=== PATIENT | male | born 1990 | race Caucasian/White ===

== ENCOUNTER 2020-03-12 11:54 | Emergency (ER) | payer OTHER ==
[~2020-03-12] VITALS: Ht 177.8 cm; Wt 65.8 kg
[2020-03-12 12:00] VITALS: BP 135/87
--- NOTE | 2020-03-12 12:05 | NUR ---
PT C/O LOWER BACK PAIN RADITING TO LEFT LOWER LEG WITH TINGLING AND NUMBNESS SENSATIONS S/P MACHENICAL FALL AROUND 7PM LAST NIGHT. DENIES URINARY/FECAL INCONTINENCE. DENIES FEVER, COUGH, BODY ACHES, SOB, CHEST PAIN, N/V/D, OR SICK CONTACT. PMH: NONE
[2020-03-12] MEDS ORDERED: KETOROLAC 60 MG/2 ML VIAL IM ONE (12:40)
--- NOTE | 2020-03-12 13:00 | NUR ---
Pt has been taking to XRAY VIA .
[2020-03-12 14:19] VITALS: BP 135/87
--- NOTE | 2020-03-12 14:20 | NUR ---
Patient discharged with v/s stable. Written and verbal after care instructions given and explained. Patient alert, oriented and verbalized understanding of instructions. Ambulatory with steady gait. All questions addressed prior to discharge. ID band removed. Patient advised to follow up with PMD. Rx of Robaxin 500mg and Motrin 800mg given. Patient educated on indication of medication including possible reaction and side effects. Opportunity to ask questions provided and answered.
== END 2020-03-12 14:20 | disposition home or self-care (01) ==
LOC: MED 11:54
DX: M54.42 Lumbago with sciatica, left side (principal)
CPT/HCPCS: 72100; 96372; 99283; J1885